=== PATIENT | male | born 1985 | race Hispanic/Latino ===

== ENCOUNTER 2024-03-02 20:09 | Emergency (ER) | payer BC ==
[~2024-03-02] VITALS: Ht 172.7 cm; Wt 108.9 kg
[2024-03-02] MEDS: HYDROCODONE/APAP 5MG-325MG TAB PO ONE (20:34)
[2024-03-02] MEDS ORDERED: HYDROCODONE/APAP 5MG-325MG TAB ONE (20:34)
[2024-03-02 22:54] VITALS: TEMP 98
[2024-03-02] MEDS ORDERED: OXYMETAZOLINE HCL 0.05% NAS 1 SPRAY BTL ONE (23:00)
[2024-03-02 23:08] VITALS: PULSE 88; RESP 20
[2024-03-02 23:28] LABS: BASOPHILS # (AUTO) 0.1 (0.0-0.1); BASOPHILS % 0.6 % (0.0-1.0); EOSINOPHILS # (AUTO) 0.1 (0.0-0.4); EOSINOPHILS % 1.2 % (0.0-6.0); HEMATOCRIT 49.5 % (38.2-49.6); HEMOGLOBIN 16.9 g/dL (14.0-18.0); LYMPHOCYTES % 27.6 % (18.0-39.1); MEAN CORPUSCULAR HEMOGLOBIN 31.1 pg (28-32); MEAN CORPUSCULAR HGB CONC 34.1 g/dL (31-35); MONOCYTES # (AUTO) 0.9 (0.2-0.8); MONOCYTES % 8.4 % (4.4-11.3); NEUTROPHILS # (AUTO) 6.7 (2.1-6.9); NEUTROPHILS % 61.7 % (38.7-80.0); PLATELET COUNT 262 x10e3/uL (140-360); RED BLOOD COUNT 5.44 x10e6/uL (4.3-5.7); RED CELL DISTRIBUTION WIDTH 11.9 % (11.7-14.4); WHITE BLOOD COUNT 10.83 x10e3/uL (4.8-10.8)
[2024-03-02 23:42] LABS: ALBUMIN 4.7 g/dL (3.5-5.0); ALBUMIN/GLOBULIN RATIO 1.3 (0.8-2.0); BILIRUBIN,TOTAL 0.6 mg/dL (0.2-1.2); CREATININE, SERUM 1.1 mg/dL (0.72-1.25); TOTAL PROTEIN 8.2 g/dL (6.5-8.1)
[2024-03-03 00:41] VITALS: BP 148/97; O2SAT 98
== END 2024-03-03 00:10 | disposition short-term general hospital (02) ==
LOC: ER 20:22
DX: S02.2XXA Fracture of nasal bones, initial encounter for closed fracture (principal); S02.40CA Maxillary fracture, right side, initial encounter for closed fracture; W01.198A Fall on same level from slipping, tripping and stumbling with subsequent striking against other object, initial encounter; Y92.89 Other specified places as the place of occurrence of the external cause; Z94.7 Corneal transplant status
CPT/HCPCS: 36415; 70486; 80053; 85025; 99284